=== PATIENT | male | born 1970 | race Caucasian/White ===

== ENCOUNTER 2022-11-27 20:20 | Emergency (ER) | payer OTHER ==
[2022-11-27] MEDS ORDERED: Ketorolac 60 MG/2 ML SDV IM ONE (20:39)
[2022-11-27] MEDS ORDERED: Cyclobenzaprine 10 MG Tab PO ONE (20:40)
[2022-11-27] MEDS ORDERED: Take Home: Cyclobenzaprine 10 MG Tab, 4 Tab Pack PO ONE (21:15)
[2022-11-27] MEDS ORDERED: Take Home: traMADol 50 MG, 4 Tab Pack PO ONE (21:30)
== END 2022-11-27 21:55 | disposition home or self-care (01) ==
LOC: CC.ED 20:20
DX: M54.42 Lumbago with sciatica, left side (principal); Z88.5 Allergy status to narcotic agent
CPT/HCPCS: 96372; 99283; A9270-GY; J1885

== ENCOUNTER 2023-01-02 20:45 | Emergency (ER) | payer OTHER | END 2023-01-03 00:51 | disposition home or self-care (01) | LOC: CC.ED 20:45 | DX: G54.9 Nerve root and plexus disorder, unspecified (principal); R29.898 Other symptoms and signs involving the musculoskeletal system; Z88.5 Allergy status to narcotic agent; Z79.899 Other long term (current) drug therapy | CPT/HCPCS: 72131; 99284; 99285 ==